=== PATIENT | female | born 1965 | race Caucasian/White ===

== ENCOUNTER 2016-12-21 20:35 | Emergency (ER) | payer BC ==
[~2016-12-21] VITALS: Ht 162.6 cm; Wt 63.5 kg
[2016-12-21 21:01] VITALS: BP_SYST 144
--- NOTE | 2016-12-21 21:55 | NUR ---
Patient left without being seen. No further treatment provided
--- NOTE | 2016-12-21 21:55 | NUR ---
Pt called in, no answer
== END 2016-12-21 21:55 | disposition left against medical advice (07) ==
LOC: SED 20:35
DX: R11.10 Vomiting, unspecified (principal); Z53.21 Procedure and treatment not carried out due to patient leaving prior to being seen by health care provider